=== PATIENT | female | born 1965 | race Caucasian/White ===

== ENCOUNTER 2017-08-22 18:51 | Emergency (ER) | payer BC ==
[~2017-08-22] VITALS: Ht 162.6 cm; Wt 63.5 kg
[2017-08-22 19:03] VITALS: BP_SYST 142
[2017-08-22] MEDS ORDERED: KETOROLAC TROMETHAMINE 60 MG/2 ML VIAL IM ONE (19:30)
[2017-08-22 20:11] VITALS: BP_SYST 138
== END 2017-08-22 20:11 | disposition home or self-care (01) ==
LOC: SED 18:51
DX: M75.31 Calcific tendinitis of right shoulder (principal); R03.0 Elevated blood-pressure reading, without diagnosis of hypertension; E78.00 Pure hypercholesterolemia, unspecified
CPT/HCPCS: 73030; 96372; 99284; J1885